=== PATIENT | female | born 1935 | race American Indian/Alaskan Native ===

== ENCOUNTER 2020-11-24 10:45 | Outpatient (CLI) | payer MEDICARE ==
--- NOTE | 2020-11-24 12:05 | XRay Report ---
RIGHT HAND 4 VIEWS INDICATION / CLINICAL INFORMATION: RIGHT HAND PAIN COMPARISON: None available. FINDINGS: BONES and JOINT(S): No acute fracture or subluxation. There is subjective osteopenia. 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 There is a marginal erosion medially at the DIP joint of the index fing er. SOFT TISSUES: Moderate edema is present throughout the index finger. No other significant abnormality . ADDITIONAL FINDINGS: None. 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 Ple ase correlate with the clinical findings. Signer Name: Martin Bowie MD Signed: 11/24/2020 12:01 PM Workstation Name: [id number]
== END 2020-11-24 10:46 | disposition home or self-care (01) ==
LOC: XRAY 10:45
PROVIDERS: ATTEND Internal Medicine
DX: M19.041 Primary osteoarthritis, right hand (principal); M79.89 Other specified soft tissue disorders